=== PATIENT | male | born 1995 | race Caucasian/White ===

== ENCOUNTER 2021-12-31 21:24 | Emergency (ER) | payer BC | END 2022-01-01 00:20 | disposition home or self-care (01) | LOC: JD.ED 21:24 | DX: R55 Syncope and collapse (principal); Z87.891 Personal history of nicotine dependence; Z86.16 Personal history of COVID-19 | CPT/HCPCS: 36415; 70450; 70450-26; 80053; 80306; 80307; 82550; 83735; 84100; 85025; 99284-25 ==